=== PATIENT | male | born 1985 | race African-American/Black ===

== ENCOUNTER 2017-08-19 13:24 | Inpatient (IN) | payer OTHER ==
[2017-08-19 13:53] VITALS: BMI 35.9
--- NOTE | 2017-08-19 16:37 | HP ---
Admission [facility] Chief Complaint: Patient presents for rehab services for K2 dependence. Allergies/Adverse Reactions: Allergies Allergy/AdvReac Type Severity Reaction Status Date / Time Tetanus Vaccines and Toxoid Allergy Verified 08/19/17 16:21 History of Present Illness: Patient presents for Rehab services for K2 dependence. Started smoking K2 last month. Uses up to 1/2 bag daily. Last use today. Has attempted Rehab in past over one year ago but relapse shortly after discharge. Also smokes 2 packs of cigarettes daily. Has PMH of Bipolar disorder and schizophrenia. Denies SI/HI. Attempted suicide 3 [place] ago [place]. Denies history of seizures and overdose. Exam Limitations: No Limitations - Ebola screening Have you traveled outside of the country in the last 21 days: No Have you had contact with anyone from an Ebola affected area: No Have you been sick,other than usual withdrawal symptoms: No Do you have a fever: No - Review of Systems Constitutional: Chills, Night Sweats, Changes in sleep EENT: reports: No Symptoms Reported Respiratory: reports: No Symptoms reported Cardiac: reports: No Symptoms Reported GI: reports: Poor Fluid Intake : reports: No Symptoms Reported Musculoskeletal: reports: Back Pain, Joint Pain Integumentary: reports: Sweating Neuro: reports: Headache Endocrine: reports: No Symptoms Reported Hematology: reports: No Symptoms Reported Psychiatric: reports: Orientated x3, Anxious, Depressed Patient History - Patient Medical History Hx Anemia: No Hx Asthma: No Hx Chronic Obstructive Pulmonary Disease (COPD): No Hx Cancer: No Hx Cardiac Disorders: No Hx Congestive Heart Failure: No Hx Hypertension: No Hx Hypercholesterolemia: No Hx Pacemaker: No HX Cerebrovascular Accident: No Hx Seizures: No Hx Dementia: No Hx Diabetes: No Hx Gastrointestinal Disorders: No Hx Liver Disease: No Hx Genitourinary Disorders: No Hx Sexually Transmitted Disorders: No Hx Renal Disease (ESRD): No Hx Thyroid Disease: No Hx Human Immunodeficiency Virus (HIV): No (refused testing) Hx Hepatitis C: No Hx Depression: Yes Hx Suicide Attempt: Yes Hx Bipolar Disorder: Yes Hx Schizophrenia: Yes - Patient Surgical History Past Surgical History: No Hx Neurologic Surgery: No Hx Cataract Extraction: No Hx Cardiac Surgery: No Hx Lung Surgery: No Hx Breast Surgery: No Hx Breast Biopsy: No Hx Abdominal Surgery: No Hx Appendectomy: No Hx Cholecystectomy: No Hx Genitourinary Surgery: No Hx Orthopedic Surgery: No Anesthesia Reaction: No - PPD History Previous Implant?: Yes Documented Results: Negative w/o proof Implanted On Prior [facility] Admission?: No PPD to be Administered?: Yes - Smoking Cessation Smoking history: Current every day smoker Have you smoked in the past 12 months: Yes Aproximately how many cigarettes per day: 40 Hx Chewing Tobacco Use: No Initiated information on smoking cessation: Yes 'Breaking Loose' booklet given: 08/19/17 - Substance & Tx. History Hx Alcohol Use: No Hx Substance Use: Yes (K2) Hx Substance Use Treatment: Yes - Substances Abused K2 Route: Smoking Frequency: Daily Amount used: 1/2 bag daily Age of first use: 32 Date of Last Use: 08/19/17 Family Disease History - Family Disease History Family Disease History: Heart Disease: Father (mental illness), Mother (mental illness) Admission Physical Exam [facility] - Vital Signs Vital Signs: Vital Signs - 24 hr 08/19/17 13:50 Temperature 97.7 F Pulse Rate 73 Respiratory 18 Rate Blood Pressure 156/85 - Physical General Appearance: Yes: Disheveled HEENTM: Yes: EOMI, Hearing grossly Normal, Normocephalic, Normal Voice, JOSE JUAN, Pharynx Normal Respiratory: Yes: Chest Non-Tender, Lungs Clear, Normal Breath Sounds, No Respiratory Distress, No Accessory Muscle Use Neck: Yes: No masses,lesions,Nodules, Supple, Trachea in good position Breast: Yes: Breast Exam Deferred Cardiology: Yes: Regular Rhythm, Regular Rate, S1, S2 Abdominal: Yes: Normal Bowel Sounds, Non Tender, Soft Genitourinary: Yes: Within Normal Limits Back: Yes: Normal Inspection, Muscle Spasm Musculoskeletal: Yes: full range of Motion, Gait Steady, Back pain, Joint swelling Extremities: Yes: Non-Tender, Swelling Neurological: Yes: service station cashier II-XII NML intact, Fully Oriented, Alert, Motor Strength 5/5 Integumentary: Yes: Normal Color, Dry, Warm Lymphatic: Yes: Within Normal Limits - Diagnostic (1) Marijuana dependence Current Visit: Yes Status: Acute (2) Nicotine dependence Current Visit: Yes Status: Acute Qualifiers: Nicotine product type: unspecified (3) Bipolar disorder Current Visit: Yes Status: Acute Qualifiers: Active/Remission status: remission status unspecified Qualified Code(s): F31.9 - Bipolar disorder, unspecified (4) Schizophrenia Current Visit: Yes Status: Acute Qualifiers: Schizophrenia type: unspecified Qualified Code(s): F20.9 - Schizophrenia, unspecified Cleared for Admission [facility] - Detox or Rehab Claeared for Rehab Admission: Yes [facility] Breath Alcohol Content Breath Alcohol Content: 0 Urine Drug Screen - Results Drug Screen Negative: Yes Inpatient Rehab Admission - Initial Determination Are CD services needed?: Yes Free of communicable disease: Yes Not in need of hospitalization: Yes - Rehab Admission Criteria Previous failed treatment: Yes Poor recovery environment: Yes Comorbidities: Yes Lacks judgement: Yes Patient is meeting Inpatient Rehab admission criteria:: Yes
[2017-08-19] MEDS ORDERED: P-EPHED 60MG/TRIPROLIDI 2.5MG TABLET PO PRN (16:52)
[2017-08-19] MEDS ORDERED: MAGNESIUM CITRATE 300 ML BOTTLE PO PRN (16:52)
[2017-08-19] MEDS ORDERED: MENTHOL/PHENOL 1 EACH UD MM PRN (16:52)
[2017-08-19] MEDS ORDERED: LOPERAMIDE HCL 2 MG CAPSULE PO PRN (16:52)
[2017-08-19] MEDS ORDERED: guaiFENesin/D-METHORPHAN HB 10 ML UNIT-DOSE CUPS PO PRN (16:52)
[2017-08-19] MEDS ORDERED: MAGNESIUM HYDROX 2400MG/30ML ORAL SUSPENSION 30 ML CUP PO PRN (16:52)
[2017-08-19] MEDS ORDERED: MAG HYDROX/AL HYDROX/SIMETH 30 ML UNIT-DOSE CUP PO PRN (16:52)
[2017-08-19] MEDS ORDERED: ACETAMINOPHEN 325 MG TABLET (FP) PO PRN (16:52)
[2017-08-19] MEDS ORDERED: TUBERCULIN PPD 5 TU/0.1ML VIAL ID ONE (20:24)
[2017-08-19] MEDS: THIAMINE HCL 100 MG TABLET (FP) PO SCH (21:24)
[2017-08-19] MEDS: MELATONIN 5 MG TABLETS PO PRN (21:24)
[2017-08-19 23:49] LABS: URINE APPEARANCE CLEAR; URINE BILIRUBIN NEGATIVE (<2.0 mg/dL); URINE COLOR AMBER; URINE GLUCOSE (UA) NEGATIVE (NEGATIVE); URINE KETONE 2+ (NEGATIVE); URINE LEUK ESTERASE NEGATIVE (NEGATIVE); URINE NITRITE NEGATIVE (NEGATIVE); URINE UROBILINOGEN 4.0 E.U/dl mg/dL (0.2-1.0)
[2017-08-19 23:54] LABS: URINE PROTEIN 1+ (NEGATIVE)
[2017-08-19 23:58] LABS: URINE MUCUS RARE
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
[2017-08-20] MEDS: NICOTINE 21 MG/24 HOURS TOPICAL PATCH TD SCH (09:54)
[2017-08-20] MEDS: PRENATAL VITAMINS W/ FOLIC ACID TABLET (FP) PO SCH (09:54)
--- NOTE | 2017-08-20 11:30 | EKG ---
Test Reason : Blood Pressure : / mmHG Vent. Rate : 083 BPM Atrial Rate : 083 BPM P-R Int : 158 ms QRS Dur : 098 ms QT Int : 374 ms P-R-T Axes : 055 027 014 degrees QTc Int : 439 ms NORMAL SINUS RHYTHM INCOMPLETE RIGHT BUNDLE BRANCH BLOCK NONSPECIFIC T WAVE ABNORMALITY ABNORMAL ECG NO PREVIOUS ECGS AVAILABLE Confirmed by FABRICIO KAUR MD ([id number]) on 08/20/2017 11:30:36 AM Referred By: Confirmed By:FABRICIO KAUR MD
--- NOTE | 2017-08-20 14:36 | EKG ---
Test Reason : Blood Pressure : / mmHG Vent. Rate : 048 BPM Atrial Rate : 048 BPM P-R Int : 190 ms QRS Dur : 092 ms QT Int : 432 ms P-R-T Axes : 022 009 017 degrees QTc Int : 385 ms SINUS BRADYCARDIA WITH SINUS ARRHYTHMIA OTHERWISE NORMAL ECG WHEN COMPARED WITH ECG OF 19-AUG-2017 21:44, VENT. RATE HAS DECREASED BY 35 BPM QT HAS SHORTENED Confirmed by FABRICIO KAUR MD ([id number]) on 08/20/2017 2:35:55 PM Referred By: Rosalio BARRETT Confirmed By:FABRICIO KAUR MD
[2017-08-20 14:42] LABS: HEMATOCRIT 41.8 % (35.4-49); HEMOGLOBIN 13.9 GM/dL (11.7-16.9); MCH 28.3 pg (25.7-33.7); MCHC 33.2 g/dl (32.0-35.9); MEAN CELL VOLUME 85.4 fl (80-96); MEAN PLT VOLUME 8.8 fl (7.5-11.1); PLATELET COUNT 279 K/MM3 (134-434); RBC 4.89 M/mm3 (4.00-5.60); RDW 17.4 % (11.9-15.9); WHITE BLOOD COUNT 4.7 K/mm3 (4.0-10.0)
[2017-08-20 15:10] LABS: ALBUMIN 3.6 g/dl (3.4-5.0); ALK PHOS 50 U/L (45-117); ANION GAP 10 (8-16); BILIRUBIN,TOTAL 0.3 mg/dL (0.2-1.0); BLOOD UREA NITROGEN 9 mg/dL (7-18); CALCIUM 8.5 mg/dL (8.5-10.1); CHLORIDE 109 mmol/L (98-107); CO2 22 mmol/L (21-32); GLUCOSE,RANDOM 112 mg/dL (74-106); SGOT/AST 28 U/L (15-37); SGPT/ALT 19 U/L (12-78); SODIUM 141 mmol/L (136-145); TOT PROT 7.1 g/dl (6.4-8.2)
[2017-08-20 15:35] LABS: SICKLE CELL SCREEN NEGATIVE (NEGATIVE)
[2017-08-20] MEDS: BENZTROPINE MESYLATE 1 MG TABLET (FP) PO SCH (21:09)
[2017-08-20] MEDS: hydrOXYzine PAMOATE 50 MG CAPSULE (FP) PO PRN (21:10)
[2017-08-20] MEDS: THIAMINE HCL 100 MG TABLET (FP) PO SCH (21:10)
[2017-08-20] MEDS: busPIRone HCL 5 MG TABLET PO SCH (21:30)
[2017-08-20] MEDS ORDERED: buPROPion HCL 100 MG TABLET PO SCH (22:00)
[2017-08-21] MEDS: PRENATAL VITAMINS W/ FOLIC ACID TABLET (FP) PO SCH (09:53)
[2017-08-21] MEDS: buPROPion HCL 100 MG TABLET PO SCH (09:53)
[2017-08-21] MEDS: NICOTINE 21 MG/24 HOURS TOPICAL PATCH TD SCH (09:53)
[2017-08-21] MEDS: BENZTROPINE MESYLATE 1 MG TABLET (FP) PO SCH ×2 (09:54→21:24)
--- NOTE | 2017-08-21 12:20 | PN ---
[facility] Progress Note Note: Dr Brennan, patient's psychiatrist at [facility] left sql report writer a voice message at 8:40 AM today. According to that message he saw patient only once on 07/24/17 and started him an injection of Haldol Decanoate 50 mg that day with the intention to raise it to 100 mg and restarted him Wellbutrin 100 mg po BID as he reported he was on. . He said that patient failed to report to a follow up appointment in 2 weeks and he never saw him again. We will administer Haldol Dec 50 mg IM today
[2017-08-21] MEDS: busPIRone HCL 5 MG TABLET PO SCH ×2 (12:29→21:23)
[2017-08-21] MEDS ORDERED: HALOPERIDOL DECANOATE 100 MG/ML IM ONE (13:00)
[2017-08-21] MEDS: THIAMINE HCL 100 MG TABLET (FP) PO SCH (21:23)
[2017-08-21] MEDS: hydrOXYzine PAMOATE 50 MG CAPSULE (FP) PO PRN (21:23)
[2017-08-21] MEDS: MELATONIN 5 MG TABLETS PO PRN (21:24)
[2017-08-22] MEDS: buPROPion HCL 100 MG TABLET PO SCH (09:51)
[2017-08-22] MEDS: PRENATAL VITAMINS W/ FOLIC ACID TABLET (FP) PO SCH (09:51)
[2017-08-22] MEDS: busPIRone HCL 5 MG TABLET PO SCH ×2 (09:51→21:29)
[2017-08-22] MEDS: BENZTROPINE MESYLATE 1 MG TABLET (FP) PO SCH ×2 (09:51→21:29)
[2017-08-22] MEDS: NICOTINE 21 MG/24 HOURS TOPICAL PATCH TD SCH (09:52)
[2017-08-22] MEDS: THIAMINE HCL 100 MG TABLET (FP) PO SCH (21:29)
[2017-08-22] MEDS: hydrOXYzine PAMOATE 50 MG CAPSULE (FP) PO PRN (21:29)
[2017-08-22] MEDS: IBUPROFEN 400 MG TABLET (FP) PO PRN (21:31)
[2017-08-22] MEDS: MELATONIN 5 MG TABLETS PO PRN (21:33)
[2017-08-23] MEDS: buPROPion HCL 100 MG TABLET PO SCH (10:09)
[2017-08-23] MEDS: PRENATAL VITAMINS W/ FOLIC ACID TABLET (FP) PO SCH (10:09)
[2017-08-23] MEDS: BENZTROPINE MESYLATE 1 MG TABLET (FP) PO SCH ×2 (10:09→21:14)
[2017-08-23] MEDS: busPIRone HCL 5 MG TABLET PO SCH ×2 (10:09→21:14)
[2017-08-23] MEDS: NICOTINE 21 MG/24 HOURS TOPICAL PATCH TD SCH (10:09)
[2017-08-23] MEDS: THIAMINE HCL 100 MG TABLET (FP) PO SCH (21:14)
[2017-08-23] MEDS: IBUPROFEN 400 MG TABLET (FP) PO PRN (21:16)
[2017-08-23] MEDS: MELATONIN 5 MG TABLETS PO PRN (21:16)
[2017-08-24] MEDS: buPROPion HCL 100 MG TABLET PO SCH (09:48)
[2017-08-24] MEDS: BENZTROPINE MESYLATE 1 MG TABLET (FP) PO SCH ×2 (09:48→22:08)
[2017-08-24] MEDS: PRENATAL VITAMINS W/ FOLIC ACID TABLET (FP) PO SCH (09:48)
[2017-08-24] MEDS: NICOTINE 21 MG/24 HOURS TOPICAL PATCH TD SCH (09:49)
[2017-08-24] MEDS: busPIRone HCL 5 MG TABLET PO SCH ×2 (09:49→21:46)
[2017-08-24] MEDS: NICOTINE POLACRILEX 2 MG GUM BC PRN (09:50)
[2017-08-24] MEDS: THIAMINE HCL 100 MG TABLET (FP) PO SCH (21:45)
[2017-08-24] MEDS: MELATONIN 5 MG TABLETS PO PRN (21:45)
[2017-08-24] MEDS: IBUPROFEN 400 MG TABLET (FP) PO PRN (21:46)
[2017-08-25] MEDS: BENZTROPINE MESYLATE 1 MG TABLET (FP) PO SCH ×2 (09:51→21:21)
[2017-08-25] MEDS: busPIRone HCL 5 MG TABLET PO SCH ×2 (09:51→21:20)
[2017-08-25] MEDS: PRENATAL VITAMINS W/ FOLIC ACID TABLET (FP) PO SCH (09:51)
[2017-08-25] MEDS: buPROPion HCL 100 MG TABLET PO SCH (09:51)
[2017-08-25] MEDS: NICOTINE 21 MG/24 HOURS TOPICAL PATCH TD SCH (09:51)
[2017-08-25] MEDS: NICOTINE POLACRILEX 2 MG GUM BC PRN ×2 (10:24→21:22)
--- NOTE | 2017-08-25 13:37 | PN ---
Psychiatric Progress Note Vital Signs: Vital Signs Period Temp Pulse Resp BP Sys/Guzmán Pulse Ox Last 24 Hr 98.5 F 75 18-20 135/84 Date of Session: 08/25/17 Chief Complaint:: Insomnia HPI: Patient addressing Cannabis Dependence comorbid with Nicotine Dependence, Paranoid Schizophrenia, Subtance-induced Mood Disorder and Substance-Induced Sleep Disorder ROS: Lactose intolerance Current Medications: Active Medications Generic Name Dose Route Start Last Admin Trade Name Freq PRN Reason Stop Dose Admin Acetaminophen 650 mg 08/19/17 16:52 Tylenol - PO Q4H PRN FEVER Al Hydroxide/Mg Hydroxide 30 ml 08/19/17 16:52 Mylanta Oral Suspension - PO Q6H PRN DYSPEPSIA Benztropine Mesylate 0.5 mg 08/20/17 22:00 08/25/17 09:51 Cogentin - PO 0.5 mg BID KAYDEN Administration Bupropion HCl 100 mg 08/21/17 10:00 08/25/17 09:51 Wellbutrin - PO 100 mg DAILY KAYDEN Administration Buspirone HCl 5 mg 08/20/17 22:00 08/25/17 09:51 Buspar - PO 5 mg BID KAYDEN Administration Eucalyptus/Menthol/Phenol/Sorbitol 1 each 08/19/17 16:52 Cepastat Lozenge - MM Q4H PRN SORE THROAT Guaifenesin 10 ml 08/19/17 16:52 Robitussin Dm - PO Q6H PRN COUGH Hydroxyzine Pamoate 50 mg 08/19/17 16:52 08/22/17 21:29 Vistaril - PO 50 mg Q4H PRN Administration AGITATION Ibuprofen 400 mg 08/19/17 16:52 08/24/17 21:46 Motrin - PO 400 mg Q6H PRN Administration Pain level 4-6 Loperamide HCl 4 mg 08/19/17 16:52 Imodium - PO Q6H PRN DIARRHEA Magnesium Citrate 300 ml 08/19/17 16:52 Citroma - PO Q48H PRN CONSTIPATION Magnesium Hydroxide 30 ml 08/19/17 16:52 Milk Of Magnesia - PO DAILY PRN CONSTIPATION Melatonin 5 mg 08/19/17 22:00 08/24/17 21:45 Melatonin PO 5 mg HS PRN Administration INSOMNIA Nicotine 21 mg 08/20/17 10:00 08/25/17 09:51 Nicoderm Patch - TD 21 mg DAILY KAYDEN Administration Nicotine Polacrilex 2 mg 08/19/17 16:52 08/25/17 10:24 Nicorette Gum - BC 2 mg Q2H PRN Administration NICOTINE REPLACEMENT RX Multivit/Folic Acid/Iron 1 tab 08/20/17 10:00 08/25/17 09:51 Vitamins (Sjr) - PO 1 tab DAILY KAYDEN Administration Pseudoephedrine/Triprolidine 1 combo 08/19/17 16:52 Actifed - PO TID PRN NASAL CONGESTION Thiamine HCl 100 mg 08/19/17 22:00 08/24/17 21:45 Vitamin B1 - PO 100 mg HS KAYDEN Administration Trazodone HCl 100 mg 08/25/17 22:00 Desyrel - PO HS KAYDEN Current Side Effect: No Lab tests ordered: Yes Lab tests reviewed: Yes Provider note:: Patient reports experiencing difficulty to sleep. Told board writer that he has been sleeping poorly despitetaking Melatonin 5 mg po at bedtime. Hypnotic properties as well adverse-effects of Trazadone discussed with patient and he agreed to tty it Total face to face time:: 15 Mental Status Exam - Mental Status Exam Alert and Oriented to: Time, Place, Person Cognitive Function: Fair Mood: Hopeful, Euthymic Patient Behavior: Cooperative Speech Pattern: Clear Voice Loudness: Normal Thought Process: Intact, Goal Oriented Thought Disorder: Not Present Hallucinations: Denies Suicidal Ideation: Denies Homicidal Ideation: Denies Insight/Judgement: Fair Sleep: Poorly Appetite: Good Muscle strength/Tone: Normal Gait/Station: Normal Psychiatric Treatment Plan - Problem List (1) Cannabis dependence Current Visit: Yes (2) Nicotine dependence Current Visit: Yes Qualifiers: Nicotine product type: unspecified (3) Paranoid schizophrenia Current Visit: Yes (4) Substance induced mood disorder Current Visit: Yes (5) Substance-induced sleep disorder Current Visit: Yes (6) Lactose intolerance Current Visit: Yes (7) Lactase deficiency disease Current Visit: Yes Initial treatment plan: 1) Start Trazadone 100 mg po HS for insomnia. 2) Monitor progress
--- NOTE | 2017-08-25 16:18 | PN ---
[facility] Progress Note Note: Patient c/o of leg swelling x 3 days, which has improved over time. Denies SOB, vertigo, chest pain or dyspnea. Vital Signs Temperature 98.5 F 08/25/17 07:08 Pulse Rate 75 08/25/17 07:08 Respiratory Rate 18 08/25/17 07:08 Blood Pressure 135/84 08/25/17 07:08 O2 Sat by Pulse Oximetry (%) Laboratory Last Values WBC 4.7 K/mm3 (4.0-10.0) 08/20/17 08:30 RBC 4.89 M/mm3 (4.00-5.60) 08/20/17 08:30 Hgb 13.9 GM/dL (11.7-16.9) 08/20/17 08:30 Hct 41.8 % (35.4-49) 08/20/17 08:30 MCV 85.4 fl (80-96) 08/20/17 08:30 MCH 28.3 pg (25.7-33.7) 08/20/17 08:30 MCHC 33.2 g/dl (32.0-35.9) 08/20/17 08:30 RDW 17.4 % (11.9-15.9) H 08/20/17 08:30 Plt Count 279 K/MM3 (134-434) 08/20/17 08:30 MPV 8.8 fl (7.5-11.1) 08/20/17 08:30 Sickle Cell Screen Negative (NEGATIVE) 08/20/17 08:30 Sodium 141 mmol/L (136-145) 08/20/17 08:30 Potassium 4.0 mmol/L (3.5-5.1) 08/20/17 08:30 Chloride 109 mmol/L (98-107) H 08/20/17 08:30 Carbon Dioxide 22 mmol/L (21-32) 08/20/17 08:30 Anion Gap 10 (8-16) 08/20/17 08:30 BUN 9 mg/dL (7-18) 08/20/17 08:30 Creatinine 1.0 mg/dL (0.7-1.3) 08/20/17 08:30 Creat Clearance w eGFR > 60 (>60) 08/20/17 08:30 Random Glucose 112 mg/dL (74-106) H 08/20/17 08:30 Calcium 8.5 mg/dL (8.5-10.1) 08/20/17 08:30 Total Bilirubin 0.3 mg/dL (0.2-1.0) 08/20/17 08:30 AST 28 U/L (15-37) 08/20/17 08:30 ALT 19 U/L (12-78) 08/20/17 08:30 Alkaline Phosphatase 50 U/L (45-117) 08/20/17 08:30 Total Protein 7.1 g/dl (6.4-8.2) 08/20/17 08:30 Albumin 3.6 g/dl (3.4-5.0) 08/20/17 08:30 Urine Color [place] 08/19/17 21:32 Urine Appearance Clear 08/19/17 21:32 Urine pH 6.0 (5.0-8.0) 08/19/17 21:32 Ur Specific [place] 1.029 (1.001-1.035) 08/19/17 21:32 Urine Protein 1+ (NEGATIVE) H 08/19/17 21:32 Urine Glucose (UA) Negative (NEGATIVE) 08/19/17 21:32 Urine Ketones 2+ (NEGATIVE) H 08/19/17 21:32 Urine Blood Negative (NEGATIVE) 08/19/17 21: Urine Nitrite Negative (NEGATIVE) 08/19/17 21:32 Urine Bilirubin Negative (<2.0 mg/dL) 08/19/17 21: Urine Urobilinogen 4.0 e.u/dl mg/dL (0.2-1.0) 08/19/17 21:32 Ur Leukocyte Esterase Negative (NEGATIVE) 08/19/17 21:32 Urine WBC (Auto) 2 /hpf (3-5) 08/19/17 21:32 Urine RBC (Auto) 2 /hpf (0-3) 08/19/17 21:32 Urine Mucus Rare 08/19/17 21:32 RPR Titer Nonreactive (NONREACTIVE) 08/20/17 08:30 A/P AOx3 in no apparent distress Skin intact, +2 non-pitting edema, + pulses through out Normal HR and rhythm No adventitious breath sounds b/l leg edema Plan: Increase fluids leg elevation continue to monitor
[2017-08-25] MEDS: traZODone HCL 100 MG TABLET (FP) PO SCH (21:20)
[2017-08-25] MEDS: THIAMINE HCL 100 MG TABLET (FP) PO SCH (21:20)
[2017-08-25] MEDS: IBUPROFEN 400 MG TABLET (FP) PO PRN (21:21)
[2017-08-25] MEDS: MELATONIN 5 MG TABLETS PO PRN (21:22)
[2017-08-26] MEDS: BENZTROPINE MESYLATE 1 MG TABLET (FP) PO SCH ×2 (09:54→21:17)
[2017-08-26] MEDS: PRENATAL VITAMINS W/ FOLIC ACID TABLET (FP) PO SCH (09:54)
[2017-08-26] MEDS: buPROPion HCL 100 MG TABLET PO SCH (09:54)
[2017-08-26] MEDS: busPIRone HCL 5 MG TABLET PO SCH ×2 (09:55→21:17)
[2017-08-26] MEDS: NICOTINE 21 MG/24 HOURS TOPICAL PATCH TD SCH (09:55)
[2017-08-26] MEDS: NICOTINE POLACRILEX 2 MG GUM BC PRN (10:21)
[2017-08-26] MEDS: traZODone HCL 100 MG TABLET (FP) PO SCH (21:16)
[2017-08-26] MEDS: THIAMINE HCL 100 MG TABLET (FP) PO SCH (21:17)
[2017-08-26] MEDS: MELATONIN 5 MG TABLETS PO PRN (21:17)
[2017-08-27] MEDS: NICOTINE 21 MG/24 HOURS TOPICAL PATCH TD SCH (09:43)
[2017-08-27] MEDS: PRENATAL VITAMINS W/ FOLIC ACID TABLET (FP) PO SCH (09:43)
[2017-08-27] MEDS: BENZTROPINE MESYLATE 1 MG TABLET (FP) PO SCH ×2 (09:43→21:17)
[2017-08-27] MEDS: busPIRone HCL 5 MG TABLET PO SCH ×2 (09:43→21:17)
[2017-08-27] MEDS: buPROPion HCL 100 MG TABLET PO SCH (09:44)
[2017-08-27] MEDS: traZODone HCL 100 MG TABLET (FP) PO SCH (21:17)
[2017-08-27] MEDS: THIAMINE HCL 100 MG TABLET (FP) PO SCH (21:17)
[2017-08-27] MEDS: hydrOXYzine PAMOATE 50 MG CAPSULE (FP) PO PRN (21:19)
[2017-08-27] MEDS: IBUPROFEN 400 MG TABLET (FP) PO PRN (21:19)
[2017-08-28] MEDS: PRENATAL VITAMINS W/ FOLIC ACID TABLET (FP) PO SCH (09:50)
[2017-08-28] MEDS: NICOTINE 21 MG/24 HOURS TOPICAL PATCH TD SCH (09:50)
[2017-08-28] MEDS: NICOTINE POLACRILEX 2 MG GUM BC PRN (09:50)
[2017-08-28] MEDS: buPROPion HCL 100 MG TABLET PO SCH (09:50)
[2017-08-28] MEDS: BENZTROPINE MESYLATE 1 MG TABLET (FP) PO SCH ×2 (09:50→21:23)
[2017-08-28] MEDS: busPIRone HCL 5 MG TABLET PO SCH ×2 (09:50→21:23)
[2017-08-28] MEDS: MELATONIN 5 MG TABLETS PO PRN (21:23)
[2017-08-28] MEDS: hydrOXYzine PAMOATE 50 MG CAPSULE (FP) PO PRN (21:23)
[2017-08-28] MEDS: traZODone HCL 100 MG TABLET (FP) PO SCH (21:23)
[2017-08-28] MEDS: THIAMINE HCL 100 MG TABLET (FP) PO SCH (21:23)
[2017-08-28] MEDS: IBUPROFEN 400 MG TABLET (FP) PO PRN (21:25)
[2017-08-29] MEDS: PRENATAL VITAMINS W/ FOLIC ACID TABLET (FP) PO SCH (10:11)
[2017-08-29] MEDS: buPROPion HCL 100 MG TABLET PO SCH (10:11)
[2017-08-29] MEDS: NICOTINE 21 MG/24 HOURS TOPICAL PATCH TD SCH (10:11)
[2017-08-29] MEDS: busPIRone HCL 5 MG TABLET PO SCH ×2 (10:11→21:50)
[2017-08-29] MEDS: BENZTROPINE MESYLATE 1 MG TABLET (FP) PO SCH ×2 (10:11→21:50)
[2017-08-29] MEDS: hydrOXYzine PAMOATE 50 MG CAPSULE (FP) PO PRN (14:15)
[2017-08-29] MEDS: THIAMINE HCL 100 MG TABLET (FP) PO SCH (21:50)
[2017-08-29] MEDS: traZODone HCL 100 MG TABLET (FP) PO SCH (21:50)
[2017-08-29] MEDS: MELATONIN 5 MG TABLETS PO PRN (21:50)
[2017-08-29] MEDS: NICOTINE POLACRILEX 2 MG GUM BC PRN (22:17)
[2017-08-30] MEDS: BENZTROPINE MESYLATE 1 MG TABLET (FP) PO SCH ×2 (09:58→21:18)
[2017-08-30] MEDS: PRENATAL VITAMINS W/ FOLIC ACID TABLET (FP) PO SCH (09:58)
[2017-08-30] MEDS: buPROPion HCL 100 MG TABLET PO SCH (09:58)
[2017-08-30] MEDS: NICOTINE 21 MG/24 HOURS TOPICAL PATCH TD SCH (09:58)
[2017-08-30] MEDS: busPIRone HCL 5 MG TABLET PO SCH ×2 (09:58→21:19)
[2017-08-30] MEDS: THIAMINE HCL 100 MG TABLET (FP) PO SCH (21:19)
[2017-08-30] MEDS: MELATONIN 5 MG TABLETS PO PRN (21:19)
[2017-08-30] MEDS: traZODone HCL 100 MG TABLET (FP) PO SCH (21:19)
[2017-08-30] MEDS: hydrOXYzine PAMOATE 50 MG CAPSULE (FP) PO PRN (21:19)
[2017-08-31] MEDS: NICOTINE 21 MG/24 HOURS TOPICAL PATCH TD SCH (09:33)
[2017-08-31] MEDS: busPIRone HCL 5 MG TABLET PO SCH ×2 (09:33→21:19)
[2017-08-31] MEDS: PRENATAL VITAMINS W/ FOLIC ACID TABLET (FP) PO SCH (09:34)
[2017-08-31] MEDS: buPROPion HCL 100 MG TABLET PO SCH (09:34)
[2017-08-31] MEDS: BENZTROPINE MESYLATE 1 MG TABLET (FP) PO SCH ×2 (09:34→21:20)
[2017-08-31] MEDS: traZODone HCL 100 MG TABLET (FP) PO SCH (21:19)
[2017-08-31] MEDS: THIAMINE HCL 100 MG TABLET (FP) PO SCH (21:19)
[2017-08-31] MEDS: MELATONIN 5 MG TABLETS PO PRN (21:21)
[2017-09-01] MEDS: PRENATAL VITAMINS W/ FOLIC ACID TABLET (FP) PO SCH (09:53)
[2017-09-01] MEDS: NICOTINE 21 MG/24 HOURS TOPICAL PATCH TD SCH (09:53)
[2017-09-01] MEDS: busPIRone HCL 5 MG TABLET PO SCH ×2 (09:53→22:21)
[2017-09-01] MEDS: buPROPion HCL 100 MG TABLET PO SCH (09:53)
[2017-09-01] MEDS: BENZTROPINE MESYLATE 1 MG TABLET (FP) PO SCH ×2 (09:53→22:21)
[2017-09-01] MEDS: traZODone HCL 100 MG TABLET (FP) PO SCH (22:21)
[2017-09-01] MEDS: MELATONIN 5 MG TABLETS PO PRN (22:21)
[2017-09-01] MEDS: THIAMINE HCL 100 MG TABLET (FP) PO SCH (22:21)
[2017-09-02] MEDS: NICOTINE 21 MG/24 HOURS TOPICAL PATCH TD SCH (10:01)
[2017-09-02] MEDS: buPROPion HCL 100 MG TABLET PO SCH (10:01)
[2017-09-02] MEDS: BENZTROPINE MESYLATE 1 MG TABLET (FP) PO SCH ×2 (10:01→21:05)
[2017-09-02] MEDS: busPIRone HCL 5 MG TABLET PO SCH ×2 (10:01→21:05)
[2017-09-02] MEDS: PRENATAL VITAMINS W/ FOLIC ACID TABLET (FP) PO SCH (10:01)
[2017-09-02] MEDS: traZODone HCL 100 MG TABLET (FP) PO SCH (21:05)
[2017-09-02] MEDS: THIAMINE HCL 100 MG TABLET (FP) PO SCH (21:05)
[2017-09-02] MEDS: IBUPROFEN 400 MG TABLET (FP) PO PRN (21:07)
[2017-09-02] MEDS: hydrOXYzine PAMOATE 50 MG CAPSULE (FP) PO PRN (21:07)
[2017-09-03] MEDS: buPROPion HCL 100 MG TABLET PO SCH (09:42)
[2017-09-03] MEDS: PRENATAL VITAMINS W/ FOLIC ACID TABLET (FP) PO SCH (09:42)
[2017-09-03] MEDS: busPIRone HCL 5 MG TABLET PO SCH ×2 (09:42→21:27)
[2017-09-03] MEDS: NICOTINE 21 MG/24 HOURS TOPICAL PATCH TD SCH (09:42)
[2017-09-03] MEDS: BENZTROPINE MESYLATE 1 MG TABLET (FP) PO SCH ×2 (09:42→21:28)
[2017-09-03] MEDS: traZODone HCL 100 MG TABLET (FP) PO SCH (21:27)
[2017-09-03] MEDS: THIAMINE HCL 100 MG TABLET (FP) PO SCH (21:28)
[2017-09-03] MEDS: hydrOXYzine PAMOATE 50 MG CAPSULE (FP) PO PRN (21:29)
[2017-09-03] MEDS: IBUPROFEN 400 MG TABLET (FP) PO PRN (21:29)
[2017-09-04] MEDS: BENZTROPINE MESYLATE 1 MG TABLET (FP) PO SCH ×2 (09:41→22:12)
[2017-09-04] MEDS: NICOTINE 21 MG/24 HOURS TOPICAL PATCH TD SCH (09:41)
[2017-09-04] MEDS: busPIRone HCL 5 MG TABLET PO SCH ×2 (09:41→22:12)
[2017-09-04] MEDS: PRENATAL VITAMINS W/ FOLIC ACID TABLET (FP) PO SCH (09:41)
[2017-09-04] MEDS: buPROPion HCL 100 MG TABLET PO SCH (09:41)
[2017-09-04] MEDS: traZODone HCL 100 MG TABLET (FP) PO SCH (22:12)
[2017-09-04] MEDS: THIAMINE HCL 100 MG TABLET (FP) PO SCH (22:12)
[2017-09-04] MEDS: IBUPROFEN 400 MG TABLET (FP) PO PRN (22:14)
[2017-09-04] MEDS: hydrOXYzine PAMOATE 50 MG CAPSULE (FP) PO PRN (22:14)
[2017-09-05] MEDS: buPROPion HCL 100 MG TABLET PO SCH (09:35)
[2017-09-05] MEDS: NICOTINE 21 MG/24 HOURS TOPICAL PATCH TD SCH (09:35)
[2017-09-05] MEDS: BENZTROPINE MESYLATE 1 MG TABLET (FP) PO SCH ×2 (09:35→21:27)
[2017-09-05] MEDS: busPIRone HCL 5 MG TABLET PO SCH ×2 (09:35→21:27)
[2017-09-05] MEDS: PRENATAL VITAMINS W/ FOLIC ACID TABLET (FP) PO SCH (09:35)
[2017-09-05] MEDS: traZODone HCL 100 MG TABLET (FP) PO SCH (21:27)
[2017-09-05] MEDS: hydrOXYzine PAMOATE 50 MG CAPSULE (FP) PO PRN (21:28)
[2017-09-05] MEDS: THIAMINE HCL 100 MG TABLET (FP) PO SCH (21:28)
[2017-09-06] MEDS: BENZTROPINE MESYLATE 1 MG TABLET (FP) PO SCH ×2 (09:40→21:30)
[2017-09-06] MEDS: NICOTINE 21 MG/24 HOURS TOPICAL PATCH TD SCH (09:40)
[2017-09-06] MEDS: PRENATAL VITAMINS W/ FOLIC ACID TABLET (FP) PO SCH (09:40)
[2017-09-06] MEDS: buPROPion HCL 100 MG TABLET PO SCH (09:40)
[2017-09-06] MEDS: busPIRone HCL 5 MG TABLET PO SCH ×2 (09:40→21:28)
[2017-09-06] MEDS: traZODone HCL 100 MG TABLET (FP) PO SCH (21:26)
[2017-09-06] MEDS: THIAMINE HCL 100 MG TABLET (FP) PO SCH (21:28)
[2017-09-06] MEDS: hydrOXYzine PAMOATE 50 MG CAPSULE (FP) PO PRN (21:30)
[2017-09-06] MEDS: IBUPROFEN 400 MG TABLET (FP) PO PRN (21:30)
[2017-09-07] MEDS: PRENATAL VITAMINS W/ FOLIC ACID TABLET (FP) PO SCH (09:50)
[2017-09-07] MEDS: NICOTINE 21 MG/24 HOURS TOPICAL PATCH TD SCH (09:50)
[2017-09-07] MEDS: busPIRone HCL 5 MG TABLET PO SCH ×2 (09:50→23:26)
[2017-09-07] MEDS: BENZTROPINE MESYLATE 1 MG TABLET (FP) PO SCH ×2 (09:51→23:26)
[2017-09-07] MEDS: buPROPion HCL 100 MG TABLET PO SCH (09:51)
[2017-09-07] MEDS: traZODone HCL 100 MG TABLET (FP) PO SCH (23:26)
[2017-09-07] MEDS: THIAMINE HCL 100 MG TABLET (FP) PO SCH (23:26)
[2017-09-07] MEDS: IBUPROFEN 400 MG TABLET (FP) PO PRN (23:27)
[2017-09-08] MEDS: busPIRone HCL 5 MG TABLET PO SCH ×2 (09:36→21:13)
[2017-09-08] MEDS: PRENATAL VITAMINS W/ FOLIC ACID TABLET (FP) PO SCH (09:36)
[2017-09-08] MEDS: NICOTINE 21 MG/24 HOURS TOPICAL PATCH TD SCH (09:36)
[2017-09-08] MEDS: buPROPion HCL 100 MG TABLET PO SCH (09:36)
[2017-09-08] MEDS: BENZTROPINE MESYLATE 1 MG TABLET (FP) PO SCH ×2 (09:37→21:13)
[2017-09-08] MEDS: NICOTINE POLACRILEX 2 MG GUM BC PRN ×2 (09:42→14:43)
--- NOTE | 2017-09-08 13:29 | PN ---
Psychiatric Progress Note Vital Signs: Vital Signs Period Temp Pulse Resp BP Sys/Guzmán Pulse Ox Last 24 Hr 97.5 F 81 18-20 137/85 Date of Session: 09/08/17 Chief Complaint:: Follow up HPI: Patient addressing Cannabis Dependence comorbid with Nicotine Dependence, Paranoid Schizophrenia, Substance-Induced Mood Disorder and Substance-Induced Sleep Disorder ROS: Lactose intolerance Current Medications: Active Medications Generic Name Dose Route Start Last Admin Trade Name Freq PRN Reason Stop Dose Admin Acetaminophen 650 mg 08/19/17 16:52 Tylenol - PO Q4H PRN FEVER Al Hydroxide/Mg Hydroxide 30 ml 08/19/17 16:52 09/05/17 16:09 Mylanta Oral Suspension - PO 30 ml Q6H PRN Administration DYSPEPSIA Benztropine Mesylate 0.5 mg 08/20/17 22:00 09/08/17 09:37 Cogentin - PO 0.5 mg BID KAYDEN Administration Bupropion HCl 100 mg 08/21/17 10:00 09/08/17 09:36 Wellbutrin - PO 100 mg DAILY KAYDEN Administration Buspirone HCl 5 mg 08/20/17 22:00 09/08/17 09:36 Buspar - PO 5 mg BID KAYDEN Administration Eucalyptus/Menthol/Phenol/Sorbitol 1 each 08/19/17 16:52 Cepastat Lozenge - MM Q4H PRN SORE THROAT Guaifenesin 10 ml 08/19/17 16:52 Robitussin Dm - PO Q6H PRN COUGH Haloperidol Decanoate 150 mg 09/09/17 10:00 Haldol Decanoate (Long-Acting) - IM 09/09/17 10:01 ONCE ONE Hydroxyzine Pamoate 50 mg 08/19/17 16:52 09/06/17 21:30 Vistaril - PO 50 mg Q4H PRN Administration AGITATION Ibuprofen 400 mg 08/19/17 16:52 09/07/17 23:27 Motrin - PO 400 mg Q6H PRN Administration Pain level 4-6 Loperamide HCl 4 mg 08/19/17 16:52 Imodium - PO Q6H PRN DIARRHEA Magnesium Citrate 300 ml 08/19/17 16:52 Citroma - PO Q48H PRN CONSTIPATION Magnesium Hydroxide 30 ml 08/19/17 16:52 Milk Of Magnesia - PO DAILY PRN CONSTIPATION Melatonin 5 mg 08/19/17 22:00 09/01/17 22:21 Melatonin PO 5 mg HS PRN Administration INSOMNIA Nicotine 21 mg 08/20/17 10:00 09/08/17 09:36 Nicoderm Patch - TD 21 mg DAILY KAYDEN Administration Nicotine Polacrilex 2 mg 08/19/17 16:52 09/08/17 09:42 Nicorette Gum - BC 2 mg Q2H PRN Administration NICOTINE REPLACEMENT RX Multivit/Folic Acid/Iron 1 tab 08/20/17 10:00 09/08/17 09:36 Vitamins ([facility]jr) - PO 1 tab DAILY KAYDEN Administration Pseudoephedrine/Triprolidine 1 combo 08/19/17 16:52 Actifed - PO TID PRN NASAL CONGESTION Thiamine HCl 100 mg 08/19/17 22:00 09/07/17 23:26 Vitamin B1 - PO 100 mg HS KAYDEN Administration Trazodone HCl 100 mg 08/25/17 22:00 09/07/17 23:26 Desyrel - PO 100 mg HS KAYDEN Administration Current Side Effect: No Lab tests ordered: Yes Lab tests reviewed: Yes Provider note:: Met with patient on his request. He wants to be started on his monthly injection of Haldol Decanoate. He was discharged from [facility] in May on Wellbutrin and Haldol Decanote 150 mg IM Q 28 days. Patient failed to follow up till he saw a psychiatrist at [facility] clinic on [facility] on 07/24/17 and Wellbutrin 100 mg po BID and an injection of Haldol Decanoate 50 mg IM. He was asked to come back shortly to get another 50 mg and gradually reaching 150 mg(discharge dose) .Patient did not go back and instead was admitted for rehab here on 08/19/17. On 08/21/17, he was administered Haldol Decanoate 50 mg IM. Tomorrow he will start with his regular monthly dose of 150 mg which will be given to him Q 28 days going forward. Wellbutrin 100 mg po BID will be restarted as well Total face to face time:: 25 Mental Status Exam - Mental Status Exam Alert and Oriented to: Time, Place, Person Cognitive Function: Fair Patient Appearance: Well Groomed Mood: Hopeful, Euthymic Affect: Appropriate Patient Behavior: Cooperative Speech Pattern: Clear Voice Loudness: Normal Thought Process: Intact, Goal Oriented Thought Disorder: Not Present Hallucinations: Denies Suicidal Ideation: Denies Homicidal Ideation: Denies Insight/Judgement: Fair Sleep: Fair Appetite: Good Muscle strength/Tone: Normal Gait/Station: Normal Psychiatric Treatment Plan - Problem List (1) Cannabis dependence Current Visit: Yes (2) Nicotine dependence Current Visit: Yes Qualifiers: Nicotine product type: unspecified (3) Paranoid schizophrenia Current Visit: Yes (4) Substance induced mood disorder Current Visit: Yes (5) Substance-induced sleep disorder Current Visit: Yes (6) Lactose intolerance Current Visit: Yes (7) Lactase deficiency disease Current Visit: Yes Initial treatment plan: 1) Start Haldol Decoanoate 150 mg IM on 09/09/17 and Wellbutrin 100 mg po BID. 2) Monitor progress
[2017-09-08] MEDS: THIAMINE HCL 100 MG TABLET (FP) PO SCH (21:12)
[2017-09-08] MEDS: traZODone HCL 100 MG TABLET (FP) PO SCH (21:13)
[2017-09-08] MEDS: IBUPROFEN 400 MG TABLET (FP) PO PRN (21:14)
[2017-09-08] MEDS: hydrOXYzine PAMOATE 50 MG CAPSULE (FP) PO PRN (21:14)
[2017-09-09] MEDS: PRENATAL VITAMINS W/ FOLIC ACID TABLET (FP) PO SCH (09:54)
[2017-09-09] MEDS: NICOTINE 21 MG/24 HOURS TOPICAL PATCH TD SCH (09:54)
[2017-09-09] MEDS: BENZTROPINE MESYLATE 1 MG TABLET (FP) PO SCH ×2 (09:54→22:18)
[2017-09-09] MEDS: busPIRone HCL 5 MG TABLET PO SCH ×2 (09:54→21:31)
[2017-09-09] MEDS: buPROPion HCL 100 MG TABLET PO SCH (09:54)
[2017-09-09] MEDS ORDERED: HALOPERIDOL DECANOATE 100 MG/ML IM ONE (10:00)
[2017-09-09] MEDS: hydrOXYzine PAMOATE 50 MG CAPSULE (FP) PO PRN ×2 (11:06→21:32)
[2017-09-09] MEDS: THIAMINE HCL 100 MG TABLET (FP) PO SCH (21:31)
[2017-09-09] MEDS: traZODone HCL 100 MG TABLET (FP) PO SCH (21:31)
[2017-09-09] MEDS: IBUPROFEN 400 MG TABLET (FP) PO PRN (21:32)
[2017-09-10] MEDS: buPROPion HCL 100 MG TABLET PO SCH (09:33)
[2017-09-10] MEDS: BENZTROPINE MESYLATE 1 MG TABLET (FP) PO SCH ×2 (09:33→21:15)
[2017-09-10] MEDS: busPIRone HCL 5 MG TABLET PO SCH ×2 (09:33→21:15)
[2017-09-10] MEDS: NICOTINE 21 MG/24 HOURS TOPICAL PATCH TD SCH (09:33)
[2017-09-10] MEDS: PRENATAL VITAMINS W/ FOLIC ACID TABLET (FP) PO SCH (09:33)
[2017-09-10] MEDS: IBUPROFEN 400 MG TABLET (FP) PO PRN (21:14)
[2017-09-10] MEDS: hydrOXYzine PAMOATE 50 MG CAPSULE (FP) PO PRN (21:14)
[2017-09-10] MEDS: THIAMINE HCL 100 MG TABLET (FP) PO SCH (21:15)
[2017-09-10] MEDS: traZODone HCL 100 MG TABLET (FP) PO SCH (21:15)
[2017-09-11] MEDS: NICOTINE 21 MG/24 HOURS TOPICAL PATCH TD SCH (10:31)
[2017-09-11] MEDS: PRENATAL VITAMINS W/ FOLIC ACID TABLET (FP) PO SCH (10:31)
[2017-09-11] MEDS: busPIRone HCL 5 MG TABLET PO SCH ×2 (10:31→21:28)
[2017-09-11] MEDS: BENZTROPINE MESYLATE 1 MG TABLET (FP) PO SCH ×2 (10:31→21:28)
[2017-09-11] MEDS: buPROPion HCL 100 MG TABLET PO SCH (10:31)
--- NOTE | 2017-09-11 15:43 | PN ---
[facility] Progress Note Note: Patient present with c/o acid reflux. Denies N/V/D. Vital Signs Temperature 98.5 F 09/11/17 06:57 Pulse Rate 98 H 09/11/17 06:57 Respiratory Rate 18 09/11/17 06:57 Blood Pressure 164/88 09/11/17 06:57 O2 Sat by Pulse Oximetry (%) Obj: Alert and oriented x 3. In no acute distress. Afebrile. Abd soft, no distention. Extremities without edema. A/P: GERD Will order Protonix 40mg daily continue to monitor clinically.
[2017-09-11] MEDS: traZODone HCL 100 MG TABLET (FP) PO SCH (21:28)
[2017-09-11] MEDS: THIAMINE HCL 100 MG TABLET (FP) PO SCH (21:28)
[2017-09-12] MEDS: NICOTINE 21 MG/24 HOURS TOPICAL PATCH TD SCH (09:37)
[2017-09-12] MEDS: BENZTROPINE MESYLATE 1 MG TABLET (FP) PO SCH ×2 (09:37→21:45)
[2017-09-12] MEDS: PANTOPRAZOLE 40 MG TABLET (FP) PO SCH (09:37)
[2017-09-12] MEDS: buPROPion HCL 100 MG TABLET PO SCH (09:37)
[2017-09-12] MEDS: PRENATAL VITAMINS W/ FOLIC ACID TABLET (FP) PO SCH (09:37)
[2017-09-12] MEDS: busPIRone HCL 5 MG TABLET PO SCH ×2 (09:37→21:45)
[2017-09-12] MEDS: MELATONIN 5 MG TABLETS PO PRN (21:45)
[2017-09-12] MEDS: hydrOXYzine PAMOATE 50 MG CAPSULE (FP) PO PRN (21:45)
[2017-09-12] MEDS: traZODone HCL 100 MG TABLET (FP) PO SCH (21:45)
[2017-09-12] MEDS: THIAMINE HCL 100 MG TABLET (FP) PO SCH (21:45)
[2017-09-12] MEDS: IBUPROFEN 400 MG TABLET (FP) PO PRN (21:46)
[2017-09-13] MEDS: PANTOPRAZOLE 40 MG TABLET (FP) PO SCH (09:50)
[2017-09-13] MEDS: NICOTINE 21 MG/24 HOURS TOPICAL PATCH TD SCH (09:50)
[2017-09-13] MEDS: buPROPion HCL 100 MG TABLET PO SCH (09:51)
[2017-09-13] MEDS: busPIRone HCL 5 MG TABLET PO SCH ×2 (09:51→21:30)
[2017-09-13] MEDS: PRENATAL VITAMINS W/ FOLIC ACID TABLET (FP) PO SCH (09:51)
[2017-09-13] MEDS: BENZTROPINE MESYLATE 1 MG TABLET (FP) PO SCH ×2 (09:51→21:33)
[2017-09-13] MEDS: hydrOXYzine PAMOATE 50 MG CAPSULE (FP) PO PRN ×2 (09:52→21:30)
[2017-09-13] MEDS: THIAMINE HCL 100 MG TABLET (FP) PO SCH (21:30)
[2017-09-13] MEDS: MELATONIN 5 MG TABLETS PO PRN (21:30)
[2017-09-13] MEDS: traZODone HCL 100 MG TABLET (FP) PO SCH (21:30)
[2017-09-14] MEDS: buPROPion HCL 100 MG TABLET PO SCH (09:58)
[2017-09-14] MEDS: PRENATAL VITAMINS W/ FOLIC ACID TABLET (FP) PO SCH (09:58)
[2017-09-14] MEDS: busPIRone HCL 5 MG TABLET PO SCH ×2 (09:58→21:29)
[2017-09-14] MEDS: NICOTINE 21 MG/24 HOURS TOPICAL PATCH TD SCH (09:59)
[2017-09-14] MEDS: BENZTROPINE MESYLATE 1 MG TABLET (FP) PO SCH ×2 (09:59→21:29)
[2017-09-14] MEDS: PANTOPRAZOLE 40 MG TABLET (FP) PO SCH (09:59)
[2017-09-14] MEDS: traZODone HCL 100 MG TABLET (FP) PO SCH (21:29)
[2017-09-14] MEDS: MELATONIN 5 MG TABLETS PO PRN (21:29)
[2017-09-14] MEDS: hydrOXYzine PAMOATE 50 MG CAPSULE (FP) PO PRN (21:29)
[2017-09-14] MEDS: THIAMINE HCL 100 MG TABLET (FP) PO SCH (21:30)
[2017-09-15] MEDS: PRENATAL VITAMINS W/ FOLIC ACID TABLET (FP) PO SCH (09:42)
[2017-09-15] MEDS: PANTOPRAZOLE 40 MG TABLET (FP) PO SCH (09:42)
[2017-09-15] MEDS: BENZTROPINE MESYLATE 1 MG TABLET (FP) PO SCH ×2 (09:42→21:25)
[2017-09-15] MEDS: busPIRone HCL 5 MG TABLET PO SCH ×2 (09:42→21:25)
[2017-09-15] MEDS: buPROPion HCL 100 MG TABLET PO SCH (09:42)
[2017-09-15] MEDS: NICOTINE 21 MG/24 HOURS TOPICAL PATCH TD SCH (11:09)
[2017-09-15] MEDS: traZODone HCL 100 MG TABLET (FP) PO SCH (21:25)
[2017-09-15] MEDS: THIAMINE HCL 100 MG TABLET (FP) PO SCH (21:25)
[2017-09-15] MEDS: hydrOXYzine PAMOATE 50 MG CAPSULE (FP) PO PRN (21:27)
[2017-09-15] MEDS: IBUPROFEN 400 MG TABLET (FP) PO PRN (21:27)
[2017-09-16 06:50] VITALS: BP 126/73; PULSE 82; TEMP 98.1
--- NOTE | 2017-09-16 08:14 | PN ---
Psychiatric Progress Note Vital Signs: Vital Signs Period Temp Pulse Resp BP Sys/Guzmán Pulse Ox Last 24 Hr 98.1 F 82 18-20 126/73 Date of Session: 09/16/17 Chief Complaint:: "Discharge" HPI: Patient addressing Cannabis Dependence comorbid with Nicotine Dependence, Paranoid Schizophrenia, Substance-Induced Mood Disorder and Substance-Induced Sleep Disorder ROS: Unremarkable Current Medications: Active Medications Generic Name Dose Route Start Last Admin Trade Name Freq PRN Reason Stop Dose Admin Acetaminophen 650 mg 08/19/17 16:52 Tylenol - PO Q4H PRN FEVER Al Hydroxide/Mg Hydroxide 30 ml 08/19/17 16:52 09/05/17 16:09 Mylanta Oral Suspension - PO 30 ml Q6H PRN Administration DYSPEPSIA Benztropine Mesylate 0.5 mg 08/20/17 22:00 09/15/17 21:25 Cogentin - PO 0.5 mg BID KAYDEN Administration Bupropion HCl 100 mg 08/21/17 10:00 09/15/17 09:42 Wellbutrin - PO 100 mg DAILY KAYDEN Administration Buspirone HCl 5 mg 08/20/17 22:00 09/15/17 21:25 Buspar - PO 5 mg BID KAYDEN Administration Eucalyptus/Menthol/Phenol/Sorbitol 1 each 08/19/17 16:52 Cepastat Lozenge - MM Q4H PRN SORE THROAT Guaifenesin 10 ml 08/19/17 16:52 Robitussin Dm - PO Q6H PRN COUGH Hydroxyzine Pamoate 50 mg 08/19/17 16:52 09/15/17 21:27 Vistaril - PO 50 mg Q4H PRN Administration AGITATION Ibuprofen 400 mg 08/19/17 16:52 09/15/17 21:27 Motrin - PO 400 mg Q6H PRN Administration Pain level 4-6 Loperamide HCl 4 mg 08/19/17 16:52 Imodium - PO Q6H PRN DIARRHEA Magnesium Citrate 300 ml 08/19/17 16:52 Citroma - PO Q48H PRN CONSTIPATION Magnesium Hydroxide 30 ml 08/19/17 16:52 Milk Of Magnesia - PO DAILY PRN CONSTIPATION Melatonin 5 mg 08/19/17 22:00 09/14/17 21:29 Melatonin PO 5 mg HS PRN Administration INSOMNIA Nicotine 21 mg 08/20/17 10:00 09/15/17 11:09 Nicoderm Patch - TD Not Given DAILY KAYDEN Nicotine Polacrilex 2 mg 08/19/17 16:52 09/08/17 14:43 Nicorette Gum - BC 2 mg Q2H PRN Administration NICOTINE REPLACEMENT RX Pantoprazole Sodium 40 mg 09/12/17 10:00 09/15/17 09:42 Protonix - PO 40 mg DAILY KAYDEN Administration Multivit/Folic Acid/Iron 1 tab 08/20/17 10:00 09/15/17 09:42 Vitamins (Sjr) - PO 1 tab DAILY KAYDEN Administration Pseudoephedrine/Triprolidine 1 combo 08/19/17 16:52 Actifed - PO TID PRN NASAL CONGESTION Thiamine HCl 100 mg 08/19/17 22:00 09/15/17 21:25 Vitamin B1 - PO 100 mg HS KAYDEN Administration Trazodone HCl 100 mg 08/25/17 22:00 09/15/17 21:25 Desyrel - PO 100 mg HS KAYDEN Administration Medication(s) Change(s): No. Current Side Effect: No Lab tests ordered: No Lab tests reviewed: Yes Provider note:: Patient will complete the [facility] inpatient rehabilitation program on 09/16/17. He has met his treatment goals and will be attending the [facility] outpatient clinic in the [place], [place]. Patient is able to understand the consequences of his addiction and the need to make positive changes to his lifestyle in order to maintain abstinence. A 30 day prescription of Wellbutrin 100mg, Trazodone 100mg, Buspar 5mg BID, and Cogentin 0.5mg BID was electronically sent to [facility] at [address] [place] [address]. Pt. is stable for discharge on 09/16/17. Total face to face time:: 35 Mental Status Exam - Mental Status Exam Alert and Oriented to: Time, Place, Person Cognitive Function: Good Patient Appearance: Well Groomed Mood: Hopeful Affect: Mood Congruent Patient Behavior: Appropriate, Cooperative Speech Pattern: Appropriate Voice Loudness: Normal Thought Process: Intact, Goal Oriented Thought Disorder: Not Present Hallucinations: Denies Suicidal Ideation: Denies Homicidal Ideation: Denies Insight/Judgement: Poor Sleep: Well Appetite: Good Muscle strength/Tone: Normal Gait/Station: Normal Psychiatric Treatment Plan - Problem List (2) Nicotine dependence Qualifiers: Nicotine product type: unspecified
[2017-09-16] MEDS: PANTOPRAZOLE 40 MG TABLET (FP) PO SCH (09:09)
[2017-09-16] MEDS: PRENATAL VITAMINS W/ FOLIC ACID TABLET (FP) PO SCH (09:09)
[2017-09-16] MEDS: busPIRone HCL 5 MG TABLET PO SCH (09:09)
[2017-09-16] MEDS: buPROPion HCL 100 MG TABLET PO SCH (09:09)
[2017-09-16] MEDS: IBUPROFEN 400 MG TABLET (FP) PO PRN (09:10)
[2017-09-16] MEDS: BENZTROPINE MESYLATE 1 MG TABLET (FP) PO SCH (09:10)
[2017-09-16] MEDS: hydrOXYzine PAMOATE 50 MG CAPSULE (FP) PO PRN (09:10)
[2017-09-16] MEDS: NICOTINE 21 MG/24 HOURS TOPICAL PATCH TD SCH (09:14)
== END 2017-09-16 09:20 | disposition home or self-care (01) | DRG 772 ==
LOC: YASAS 13:24 → Y3W 17:11
PROVIDERS: ADMIT Psychiatry & Neurology Psychiatry; ATTEND Psychiatry & Neurology Psychiatry
PROC: HZ42ZZZ Group Counseling for Substance Abuse Treatment, Cognitive-Behavioral (ICD-10-PCS; principal; 2017-08-19)
DX: F12.20 Cannabis dependence, uncomplicated (principal); F17.210 Nicotine dependence, cigarettes, uncomplicated; F31.9 Bipolar disorder, unspecified; F19.24 Other psychoactive substance dependence with psychoactive substance-induced mood disorder; F19.282 Other psychoactive substance dependence with psychoactive substance-induced sleep disorder; F20.0 Paranoid schizophrenia; E73.9 Lactose intolerance, unspecified; R60.0 Localized edema
CPT/HCPCS: 36415; 80053; 81003; 81015; 85027; 85660; 86593; 93005; 93010